=== PATIENT | male | born 1985 | race Caucasian/White ===

== ENCOUNTER 2017-08-11 18:29 | Emergency (ER) | payer SELFPAY ==
[~2017-08-11] VITALS: Ht 190.5 cm; Wt 162.8 kg
--- OUTSIDE RECORDS SUMMARY | 2017-08-11 18:37 | XMS REPORT ---
Author Author BHAVESH FONSECA [facility] eClinicalWorks Address Unknown Phone Unavailable Care Team Providers Care Chemical Processing Equipment Repairer Name Role Phone BHAVESH FONSECA CP Unavailable Allergies, Adverse Reactions, Alerts Substance Reaction Event Type codiene Info Not Available Non Drug Allergy Hydrocodone anaphylaxis Non Drug Allergy Problems Problem Type Condition Code Onset Dates Condition Status Problem Encounter for dental examination and cleaning without abnormal findings Z01.20 Active Problem Condyloma acuminatum 078.11 Active Problem Dyspepsia R10.13 Active Assessment Dental examination Z01.20 Active Assessment Necrosis of pulp K04.1 Active Medications Medication Code System Code Instructions Start Date End Date Status Dosage Amoxicillin [facility] [address]-86 500 MG Orally Three times a day April 28, 2015 May 08, 2015 1 capsule Procedures Procedure Coding System Code Date INTRAORL-PERIAPICAL 1 FILM 20948 CPT-4 D0220 April 28, 2015 SURG REMOVAL ERUPTED TOOTH CPT-4 D7210 April 28, 2015 LTD ORAL EVALUATION - PROBLEM FOCUS CPT-4 D0140 April 28, 2015 Vital Signs Date/Time: April 28, 2015 Blood Pressure Diastolic 99 mmHg Blood Pressure Systolic 152 mmHg Results No Known Results Summary Purpose eClinicalWorks Submission
--- OUTSIDE RECORDS SUMMARY | 2017-08-11 18:37 | XMS REPORT ---
Author Author BHAVESH FONSECA Organization eClinicalWorks Address Unknown Phone Unavailable Care Team Providers Care Set Up Mechanic Heading Machines Name Role Phone BHAVESH FONSECA CP Unavailable Allergies, Adverse Reactions, Alerts Substance Reaction Event Type Hydrocodone Info Not Available Non Drug Allergy Problems Problem Type Condition Code Onset Dates Condition Status Assessment Dental examination V72.2 Active Problem Condyloma acuminatum 078.11 Active Medications Medication Code System Code Instructions Start Date End Date Status Dosage Ibuprofen [facility] [address]-48 800 MG Orally Three times a day Nov 09, 2014 Dec 09, 2014 1 tablet Procedures Procedure Coding System Code Date EXTRAC ERUPTED TOOTH/EXPOSED ROOT CPT-4 D7140 Nov 09, 2014 EXTRAC ERUPTED TOOTH/EXPOSED ROOT CPT-4 D7140 Nov 09, 2014 Vital Signs Date/Time: Nov 09, 2014 Blood Pressure Diastolic 95 140 mmHg Blood Pressure Systolic 152 mmHg Height 75 in Results No Known Results Summary Purpose eClinicalWorks Submission
--- OUTSIDE RECORDS SUMMARY | 2017-08-11 18:37 | XMS REPORT ---
Author Author BHAVESH FONSECA Organization eClinicalWorks Address Unknown Phone Unavailable Care Team Providers Care Railway Equipment Operator Name Role Phone BHAVESH FONSECA CP Unavailable Allergies No Known Allergies Problems Problem Type Condition ICD-9 Code Onset Dates Condition Status Assessment Dental examination V72.2 Active Problem Condyloma acuminatum 078.11 Active Medications No Known Medications Procedures Procedure Coding System Code Date INTRAORL-PERIAPICAL 1 FILM 49109 CPT-4 D0220 Oct 28, 2014 BITEWING - SINGLE FILM CPT-4 D0270 Oct 28, 2014 LTD ORAL EVALUATION - PROBLEM FOCUS CPT-4 D0140 Oct 28, 2014 Results No Known Results Summary Purpose eClinicalWorks Submission
--- OUTSIDE RECORDS SUMMARY | 2017-08-11 18:38 | XMS REPORT ---
Author Author MILI CULP Organization eClinicalWorks Address Unknown Phone Unavailable Care Team Providers Care Basin Operator Name Role Phone MILI CULP CP Unavailable Allergies, Adverse Reactions, Alerts Substance Reaction Event Type Hydrocodone Info Not Available Non Drug Allergy Problems Problem Type Condition Code Onset Dates Condition Status Problem Condyloma acuminatum 078.11 Active Assessment Encounter for dental examination and cleaning without abnormal findings Z01.20 Active Problem Encounter for dental examination and cleaning without abnormal findings Z01.20 Active Medications Medication Code System Code Instructions Start Date End Date Status Dosage Amoxicillin NDC [address]-86 500 MG Orally Three times a day 1 capsule Naproxen NDC 0 not defined Procedures Procedure Coding System Code Date INTRAORL - CMPL SERIES CODE 04584 CPT-4 D0210 Jan 18, 2015 Full mouth debridement CPT-4 D4355 Jan 18, 2015 COMP ORAL EVALUATION - NEW/EST PT CPT-4 D0150 Jan 18, 2015 Vital Signs Date/Time: Jan 18, 2015 Blood Pressure Diastolic 87 mmHg Blood Pressure Systolic 140 mmHg Cardiac Monitoring Heart Rate 87 bpm Results No Known Results Summary Purpose eClinicalWorks Submission
--- OUTSIDE RECORDS SUMMARY | 2017-08-11 18:38 | XMS REPORT ---
Author Author MARCOS HALEY Organization eClinicalWorks Address Unknown Phone Unavailable Care Team Providers Care Stores Naval Name Role Phone MARCOS HALEY CP Unavailable Allergies, Adverse Reactions, Alerts Substance Reaction Event Type Hydrocodone anaphylaxis Non Drug Allergy Problems Problem Type Condition Code Onset Dates Condition Status Problem Encounter for dental examination and cleaning without abnormal findings Z01.20 Active Problem Condyloma acuminatum 078.11 Active Problem Dyspepsia R10.13 Active Assessment Dyspepsia R10.13 Active Medications Medication Code System Code Instructions Start Date End Date Status Dosage Omeprazole Magnesium [facility] [address]78 20 MG Orally 2 times a day Feb 23, 2015 1 tablet Procedures Procedure Coding System Code Date Office Visit, Est Pt., Level 3 CPT-4 20192 Feb 23, 2015 IMMUNOASSAY,INFECTIOUS AGENT CPT-4 27050 Feb 23, 2015 Vital Signs Date/Time: Feb 23, 2015 Temperature 97.6 F Weight 386.5 lbs Height 73 in BMI 50.99 Index Blood Pressure Diastolic 80 mmHg Blood Pressure Systolic 130 mmHg Cardiac Monitoring Heart Rate 106 bpm Results Name Result Date Reference Range Unit Abnormality Flag H. PYLORI (IN HOUSE) ----H. PYLORI neg [id number] ----Control + [id number] ----Lot # [id number] ----Exp date [id number] Summary Purpose eClinicalWorks Submission
--- NOTE | 2017-08-11 18:53 | ED Lower Extremity ---
General Stated Complaint: R KNEE PAIN FROM FALL Source: patient Exam Limitations: no limitations History of Present Illness Date Seen by Provider: Aug 11, 2017 Time Seen by Provider: 18:51 Initial Comments to ER per private vehicle with reports of right knee pain after a fall. He was on a slip and slide yesterday when he fell. He's had pain with weightbearing since then. He is able to flex the knee but experiences more pain when he fully extends the knee. He initially had some numbness to the lower extremity from the knee distally but that has resolved now has full sensation. Onset: yesterday Severity: moderate Pain/Injury Location: right knee Method of Injury: fell Modifying Factors: Worse With Movement Allergies and Home Medications Allergies Coded Allergies: hydrocodone (Verified Allergy, Unknown, 08/11/17) Home Medications No Active Prescriptions or Reported Meds Patient Home Medication List Home Medication List Reviewed: Yes Constitutional: see HPI EENTM: see HPI Respiratory: no symptoms reported Cardiovascular: no symptoms reported Genitourinary: no symptoms reported Musculoskeletal: see HPI Skin: no symptoms reported Psychiatric/Neurological: No Symptoms Reported Past Nsacore-Umwvtq-Xnyrcq Hx Patient Social History Recent Foreign Travel: No Contact w/Someone Who Travel: No Physical Exam Vital Signs Vital Signs - First Documented 08/11/17 18:39 Temp 97.4 Pulse 100 Resp 18 B/P (MAP) 160/100 (120) Capillary Refill : General Appearance: WD/WN, no apparent distress, obese HEENT: PERRL/EOMI, normal ENT inspection Neck: non-tender, full range of motion Respiratory: no respiratory distress, no accessory muscle use Gastrointestinal: normal bowel sounds, non tender Hips: bilateral hip non-tender, bilateral hip normal inspection, bilateral hip normal range of motion Legs: bilateral leg non-tender, bilateral leg normal inspection, bilateral leg normal range of motion Knees: right knee pain, right knee soft tissue tenderness, right knee other ( report I'm unable to feel any significant joint effusion, due to his body habitus I'm afraid I would be unable to evaluate for any small joint effusion based on clinical exam.) Ankles: bilateral ankle non-tender, bilateral ankle normal inspection, bilateral ankle normal range of motion Feet: bilateral foot non-tender, bilateral foot normal inspection, bilateral foot normal range of motion Neurologic/Psychiatric: alert, normal mood/affect, oriented x 3 Skin: normal color, warm/dry Progress/Results/Core Measures Results/Orders My Orders Orders - MAHNAZ ANTONIO APRN Knee, Right, 3 Views (08/11/17 18:50) Vital Signs/I&O 08/11/17 18:39 Temp 97.4 Pulse 100 Resp 18 B/P (MAP) 160/100 (120) Departure Communication (Admissions) patient does have his own crutches. Due to body habitus and the immobilizer is not practical. Impression Primary Impression: Internal derangement of knee Disposition: HOME, SELF-CARE Condition: Stable Departure-Patient Inst. Decision time for Depature: 19:14 Referrals: CAROLYN JUSTICE (PCP/Family) Primary Care Physician Patient Instructions: Knee Sprain (DC), Ligament Injuries in the Knee (DC) Add. Discharge Instructions: 1. Follow-up with your doctor later this week for further evaluation of the knee and possibly orthopedic referral. Scripts No Active Prescriptions or Reported Meds Work/School Note: Work Release Form Date Seen in the Emergency Department: Aug 11, 2017 Return to Work: Aug 15, 2017 Restrictions: No Restrictions MAHNAZ ANTONIO APRN Aug 11, 2017 18:53
[2017-08-11 20:17] VITALS: BP 158/98
--- NOTE | 2017-08-11 20:50 | Diagnostic Imaging Report ---
INDICATION: Right knee pain after a fall. EXAMINATION: Right knee, 08/11/2017. FINDINGS: Three views of the knee. There is a small joint effusion. Fat stranding about the subcutaneous soft tissues, perhaps due to edema. No fractures or dislocations. IMPRESSION: No acute osseous abnormality with other findings as above. Dictated by: Dictated on workstation # [id number]
== END 2017-08-11 20:18 | disposition home or self-care (01) ==
LOC: EDUNIT# 18:29 → ER 18:33
DX: M23.91 Unspecified internal derangement of right knee (principal); Z88.5 Allergy status to narcotic agent; W01.0XXA Fall on same level from slipping, tripping and stumbling without subsequent striking against object, initial encounter
CPT/HCPCS: 73562

== ENCOUNTER 2022-03-02 12:03 | Emergency (ER) | payer SELFPAY ==
[~2022-03-02] VITALS: Ht 193 cm; Wt 205.4 kg
[2022-03-02] MEDS ORDERED: dilTIAZem DRIP PRE-MIX 125 ML IV ONE (12:19)
[2022-03-02] MEDS ORDERED: dilTIAZem DRIP PRE-MIX 125 ML IV SCH (12:30)
--- NOTE | 2022-03-02 12:41 | ED Cardiac General ---
History of Present Illness General Chief Complaint: Cardiac/General Problems Stated Complaint: IRREGULAR HEART | HIGH BLOOD PRESSURE | HX OF AFIB Nursing Triage Note: PT PRESENTS TO ED VIA POV FROM DR OFFICE FOR HTN, TACHYCARDIA AND IRREGULAR HR. PT REPORTS HR WAS IN THE 160S AT HIS DR OFFICE. PT DENIES SOA OF CP AT THIS TIME. Source: patient Exam Limitations: no limitations History of Present Illness Date Seen by Provider: Mar 02, 2022 Time Seen by Provider: 12:07 Initial Comments This 36-year-old gentleman presents to the emergency room by private vehicle as referred by the [facility] clinic in [place]. He has previously been seen at the [facility] clinic in [employer] but is transferring care to [place] because his provider left the clinic. During assessment at the clinic he was noted to have tachycardia. He has a history of atrial flutter/fibrillation and has been admitted to [facility] in the past. He required electrocardioversion previously. He reports being out of Eliquis for the past week and therefore has not been anticoagulated during that time. He has been taking sotalol 120 mg twice daily. This dose was confirmed with his pharmacy. Allergies and Home Medications Allergies Coded Allergies: hydrocodone (Verified Allergy, Unknown, 08/11/17) Patient Home Medication List No Active Prescriptions or Reported Meds Past Lhxjnql-Xmngto-Oajria Hx Patient Social History Tobacco Use?: Yes Tobacco type used: Cigarettes Smoking Status: Current Everyday Smoker Substance use?: No Alcohol Use?: Yes Alcohol Frequency: Rarely Pt feels they are or have been: No Past Medical History Surgery/Hospitalization HX: PMH: AFIB, DM, HTN Surgeries: No Respiratory: No Cardiac: Yes Atrial Fibrillation, Hypertension Neurological: No Genitourinary: No Gastrointestinal: No Musculoskeletal: No Endocrine: Yes (Morbid obesity) Diabetes, Non-Insulin dep HEENT: No Cancer: No Psychosocial: No Integumentary: No Physical Exam Vital Signs Vital Signs - First Documented 03/02/22 12:12 Temp 36.0 Pulse 156 Resp 18 B/P (MAP) 135/98 (110) Pulse Ox 98 Capillary Refill : Less Than 3 Seconds Height, Weight, BMI Height: 6'3.00" Weight: 359lbs. oz. 162.869303nq; 55.00 BMI Method:Stated Progress/Results/Core Measures Results/Orders Lab Results Laboratory Tests Test 03/02/22 12:19 Range/Units White Blood Count 13.6 H 4.3-11.0 10^3/uL Red Blood Count 4.85 4.30-5.52 10^6/uL Hemoglobin 14.0 13.3-17.7 g/dL Hematocrit 43 40-54 % Mean Corpuscular Volume 89 80-99 fL Mean Corpuscular Hemoglobin 29 25-34 pg Mean Corpuscular Hemoglobin Concent 32 32-36 g/dL Red Cell Distribution Width 13.6 10.0-14.5 % Platelet Count 455 H 130-400 10^3/uL Mean Platelet Volume 10.2 9.0-12.2 fL Immature Granulocyte % (Auto) 0 % Neutrophils (%) (Auto) 68 42-75 % Lymphocytes (%) (Auto) 25 12-44 % Monocytes (%) (Auto) 5 0-12 % Eosinophils (%) (Auto) 1 0-10 % Basophils (%) (Auto) 0 0-10 % Neutrophils # (Auto) 9.2 H 1.8-7.8 10^3/uL Lymphocytes # (Auto) 3.4 1.0-4.0 10^3/uL Monocytes # (Auto) 0.7 0.0-1.0 10^3/uL Eosinophils # (Auto) 0.1 0.0-0.3 10^3/uL Basophils # (Auto) 0.1 0.0-0.1 10^3/uL Immature Granulocyte # (Auto) 0.1 0.0-0.1 10^3/uL Sodium Level 133 L 135-145 MMOL/L Potassium Level 4.6 3.6-5.0 MMOL/L Chloride Level 99 98-107 MMOL/L Carbon Dioxide Level 23 21-32 MMOL/L Anion Gap 11 5-14 MMOL/L Blood Urea Nitrogen 19 H 7-18 MG/DL Creatinine 0.86 0.60-1.30 MG/DL Estimat Glomerular Filtration Rate 114 BUN/Creatinine Ratio 22 Glucose Level 132 H 70-105 MG/DL Calcium Level 9.7 8.5-10.1 MG/DL Corrected Calcium 9.7 8.5-10.1 MG/DL Magnesium Level 1.9 1.6-2.4 MG/DL Total Bilirubin 0.3 0.1-1.0 MG/DL Aspartate Amino Transf (AST/SGOT) 21 5-34 U/L Alanine Aminotransferase (ALT/SGPT) 41 0-55 U/L Alkaline Phosphatase 83 40-136 U/L C-Reactive Protein High Sensitivity 2.01 H 0.00-0.50 MG/DL Total Protein 7.5 6.4-8.2 GM/DL Albumin 4.0 3.2-4.5 GM/DL TSH [place] Testing 1.21 0.35-4.94 UIU/ML My Orders Orders - NICK PRICE MD Ekg Tracing (03/02/22 12:07) Diltiazem Injection (Cardizem Injection) (03/02/22 12:30) Diltiazem Drip Pre-Mix (Cardizem Drip Pr (03/02/22 12:30) Ekg Tracing (03/02/22 12:35) Cbc With Automated Diff (03/02/22 12:35) Comprehensive Metabolic Panel (03/02/22 12:35) Magnesium (03/02/22 12:35) Thyroid Analyzer (03/02/22 12:35) Ed Iv/Invasive Line Start (03/02/22 12:35) Monitor-Rhythm Ecg Trace Only (03/02/22 12:35) Apixaban Tablet (Eliquis Tablet) (03/02/22 13:15) Hs C Reactive Protein (03/02/22 13:11) Diltiazem Cd 24 Hr Capsule (Cardizem Cd (03/02/22 13:58) Medications Given in ED Current Medications Medications Dose Ordered Sig/Radha Route Start Time Stop Time Status Last Admin Dose Admin Apixaban 5 mg ONCE ONCE PO 03/02/22 13:15 03/02/22 13:16 DC 03/02/22 13:40 5 MG Diltiazem HCl 10 mg ONCE ONCE IVP 03/02/22 12:30 03/02/22 12:31 DC 03/02/22 12:23 10 MG Vital Signs/I&O 03/02/22 03/02/22 03/02/22 12:12 12:23 12:23 Temp 36.0 Pulse 156 154 154 Resp 18 B/P (MAP) 135/98 (110) 135/98 135/98 Pulse Ox 98 Blood Pressure Mean: 110 Progress Progress Note #1: Time: 12:38 Progress Note Patient was interviewed and examined. He was found to have a narrow complex tachycardia resembling atrial flutter on the monitor and on EKG. Cardizem bolus of 10 mg and drip of 10 mg/h were initiated. QRS complex have now spaced out on the monitor and have clearly unmasked atrial flutter. Patient denied any chest pain. He does report being out of his Eliquis for about a week. We will reinitiate the Eliquis. After labs are reviewed, rhythm will be reassessed and disposition will be determined. Progress Note #2: Time: 14:01 Progress Note Work-up included review of labs including CBC, CMP, thyroid analyzer, magnesium, and CRP. My review of these labs demonstrates no significant abnormality. Patient's rate is controlled on Cardizem drip at 5 mg/h at this time. Patient is very reluctant to be admitted. We do need to ensure that his medications are appropriate and available if he is to be discharged home. I am presently working with the pharmacy to ensure his medications are arranged. Case was discussed with Dr. Laurent, corporate associate attorney on-call. EKG #1: EKG Time: 12:17 Rate: 156 Rhythm: A Fib/Flutter ECG Impression: Atrial Fibrillation w/RVR Comment Narrow complex tachycardia, likely atrial flutter. No STEMI. No noted abnormal intervals. EKG #2: EKG Time: 12:40 Rate: 90 Rhythm: A Fib/Flutter Comment Rate controlled atrial flutter with no ST elevation or depression. No abnormal intervals or axis deviation. Departure Impression Primary Impression: Atrial flutter with rapid ventricular response Disposition: 01 HOME, SELF-CARE Condition: Improved Departure-Patient Inst. Decision time for Depature: 14:34 Referrals: SHARMAINE JORDAN APRN (PCP) Primary Care Physician [facility][1]/DELANEY (Family) Primary Care Physician Patient Instructions: Atrial Flutter Add. Discharge Instructions: Resume anticoagulation with Xarelto, Eliquis, or Pradaxa as provided by the [facility] clinic. If you are unable to obtain an affordable prescription through the clinic providers, they may have samples to help you get through the weekend until arrangements for affordable prescriptions can be made. Your next dose of anticoagulation will need to be early tomorrow. It is important to take your anticoagulation regularly to reduce risk of stroke and to help facilitate electrocardioversion if that is needed in the future. STOP sotalol until otherwise directed by corporate associate attorney. START Cartia XT (long-acting diltiazem) 300 mg daily. Take your next dose early tomorrow. The retail pricing of this medication at [facility] is around $40. If a [facility] provider prescribes it, it may be available cheaper. Check it with your provider to see if they are willing to prescribe it. Follow-up with Dr. SANZ and your primary care provider soon as possible. Please call today for an appointment. Return to the emergency room if you have worsening symptoms or if your heart rate is not controlled on the oral medication. Also return to the emergency room if you have any significant trauma or head injury while on anticoagulation or if you have any unusual bleeding. All discharge instructions reviewed with patient and/or family. Voiced understanding. Scripts Diltiazem HCl (Cartia Xt) 300 Mg Cap.er.24h 300 MG PO DAILY, #30 CAP Prov: NICK PRICE MD 03/02/22 NICK PRICE MD Mar 02, 2022 12:41
[2022-03-02 12:44] LABS: BASOPHILS # (AUTO) 0.1 10^3/uL (0.0-0.1); BASOPHILS % (AUTO) 0 % (0-10); EOSINOPHILS # (AUTO) 0.1 10^3/uL (0.0-0.3); EOSINOPHILS % (AUTO) 1 % (0-10); HEMATOCRIT 43 % (40-54); LYMPHOCYTES # (AUTO) 3.4 10^3/uL (1.0-4.0); LYMPHOCYTES % (AUTO) 25 % (12-44); MEAN CORPUSCULAR HEMOGLOBIN 29 pg (25-34); MEAN CORPUSCULAR HGB CONC 32 g/dL (32-36); MEAN CORPUSCULAR VOLUME 89 fL (80-99); MEAN PLATELET VOLUME 10.2 fL (9.0-12.2); MONOCYTES # (AUTO) 0.7 10^3/uL (0.0-1.0); MONOCYTES % (AUTO) 5 % (0-12); NEUTROPHILS # (AUTO) 9.2 10^3/uL (1.8-7.8); NEUTROPHILS % (AUTO) 68 % (42-75); PLATELET COUNT 455 10^3/uL (130-400); WHITE BLOOD COUNT 13.6 10^3/uL (4.3-11.0)
[2022-03-02 12:49] LABS: POTASSIUM 4.6 MMOL/L (3.6-5.0)
[2022-03-02 12:50] LABS: CALCIUM 9.7 MG/DL (8.5-10.1)
[2022-03-02 12:51] LABS: TOTAL PROTEIN 7.5 GM/DL (6.4-8.2)
[2022-03-02 12:53] LABS: BILIRUBIN,TOTAL 0.3 MG/DL (0.1-1.0)
[2022-03-02 12:55] LABS: CREATININE SERUM 0.86 MG/DL (0.60-1.30)
[2022-03-02 12:57] LABS: MAGNESIUM 1.9 MG/DL (1.6-2.4)
[2022-03-02] MEDS ORDERED: APIXABAN 5 MG (ELIQUIS) TABLET PO ONE (13:15)
[2022-03-02 13:18] LABS: TSH (THYROID ANALYZER) 1.21 UIU/ML (0.35-4.94)
[2022-03-02] MEDS ORDERED: DILT300C26 PO (14:35)
[2022-03-02 15:50] VITALS: BP 129/78
== END 2022-03-02 15:50 | disposition home or self-care (01) ==
LOC: EDUNIT# 12:03 → ER 12:06
DX: I48.92 Unspecified atrial flutter (principal); F17.210 Nicotine dependence, cigarettes, uncomplicated; E66.01 Morbid (severe) obesity due to excess calories; Z68.43 Body mass index [BMI] 50.0-59.9, adult; Z28.310 Unvaccinated for COVID-19
CPT/HCPCS: 36415; 80053; 83735; 84443; 85025; 86141; 93005; 93041

== ENCOUNTER 2022-07-19 21:10 | Outpatient (CLI) | payer OTHER ==
[~2022-07-19 21:10] MED LIST: DILT300C26 PO
== END 2022-07-20 04:36 | disposition home or self-care (01) ==
LOC: SLEEP 21:10
PROVIDERS: ATTEND Nurse Practitioner Family
DX: G47.33 Obstructive sleep apnea (adult) (pediatric) (principal)
CPT/HCPCS: 95811